=== PATIENT | female | born 1970 | race Caucasian/White ===

== ENCOUNTER 2017-04-11 10:44 | Emergency (ER) | payer SELFPAY ==
[~2017-04-11] VITALS: Ht 157.5 cm; Wt 58.0 kg
[2017-04-11 10:46] VITALS: BP 143/86; PULSE 97; RESP 20; TEMP 98.7; O2SAT 98
--- NOTE | 2017-04-11 11:01 | PD ---
HPI Chief Complaint: Pcas Problem/Complaint Time Seen by Provider: 11:01 Travel History International Travel<30 days: No Contact w/Intl Traveler<30days: No Traveled to known affect area: No History of Present Illness HPI 46-year-old female came to the emergency room with history of 2 weeks of vaginal bleeding. Patient says it has been happy where she is passing blood clots and has used a box of tampons already. She has been nauseous and vomiting alternatives days. Her mother is here who is aggressively providing history and giving her concerns as well. Patient does not seem to be in any significant distress. Vital signs are stable. 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 Patient vehemently denied any chance of being . She has a PRODUCT DEVELOPMENT TECHNICIAN but does not have insurance and hence came here. She has been little tired lately. She has not seen her PRODUCT DEVELOPMENT TECHNICIAN or taken any [id number]-slekdyn medications. Patient is not a smoker. [facility] Past Medical History Narrative Medical List of her past medical, surgical, social and family history is reviewed from the nursing note. Social History Tobacco Use: Yes Allergies-Medications (Allergen,Severity, Reaction): Coded Allergies: No Known Allergies (Unverified , 04/11/17) Comments No known drug allergies. Reported Meds & Prescriptions Reported Meds & Active Scripts Active Zofran Odt (Ondansetron Odt) 4 Mg Tab 4 Mg SL Q6HR PRN Ibuprofen 600 Mg Tab 600 Mg PO Q6H PRN Ferrous Sulfate 325 Mg (65 Mg Iron) Tablet 325 Mg PO BIDPC Ortho Tri-Cyclen (Norgestimate-Ethinyl Estradiol) 0.18/0.215/0.25 mg-35 Mcg Tab 1 Tab PO DAILY Narrative Medication List of her home medications reviewed from the nursing note. Review of Systems Except as stated in HPI: all other systems reviewed are Neg Physical Exam Narrative GENERAL: Awake, alert, no obvious distress SKIN: Focused skin assessment warm/dry. HEAD: Atraumatic. Normocephalic. EYES: Pupils equal and round. No scleral icterus. No injection or drainage. ENT: No nasal bleeding or discharge. Mucous membranes pink and moist. NECK: Trachea midline. No JVD. CARDIOVASCULAR: Regular rate and rhythm. No murmur appreciated. RESPIRATORY: No accessory muscle use. Clear to auscultation. Breath sounds equal bilaterally. GASTROINTESTINAL: Abdomen soft, non-tender, nondistended. Hepatic and splenic margins not palpable. MUSCULOSKELETAL: No obvious deformities. No clubbing. No cyanosis. No edema. NEUROLOGICAL: Awake and alert. No obvious cranial nerve deficits. Motor grossly within normal limits. Normal speech. PSYCHIATRIC: Appropriate mood and affect; insight and judgment normal. Data Data Last Documented VS Vital Signs Date Time Temp Pulse Resp B/P (MAP) Pulse Ox O2 Delivery O2 Flow Rate FiO2 04/11/17 13:05 75 99 04/11/17 10:46 98.7 20 Room Air Orders Orders Basic Metabolic Panel (Bmp) (04/11/17 11:14) Complete Blood Count With Diff (04/11/17 11:14) Ecg Monitoring (04/11/17 11:14) Iv Access Insert/Monitor (04/11/17 11:14) Oximetry (04/11/17 11:14) Sodium Chloride 0.9% Flush (Ns Flush) (04/11/17 11:15) Potassium Chloride (Kcl) (04/11/17 12:30) Labs Laboratory Tests Test 04/11/17 11:30 White Blood Count 4.4 TH/MM3 Red Blood Count 2.58 MIL/MM3 Hemoglobin 9.1 GM/DL Hematocrit 26.7 % Mean Corpuscular Volume 103.5 FL Mean Corpuscular Hemoglobin 35.1 PG Mean Corpuscular Hemoglobin Concent 33.9 % Red Cell Distribution Width 13.7 % Platelet Count 161 TH/MM3 Mean Platelet Volume 7.7 FL Neutrophils (%) (Auto) 55.0 % Lymphocytes (%) (Auto) 32.6 % Monocytes (%) (Auto) 7.7 % Eosinophils (%) (Auto) 3.5 % Basophils (%) (Auto) 1.2 % Neutrophils # (Auto) 2.4 TH/MM3 Lymphocytes # (Auto) 1.4 TH/MM3 Monocytes # (Auto) 0.3 TH/MM3 Eosinophils # (Auto) 0.2 TH/MM3 Basophils # (Auto) 0.1 TH/MM3 CBC Comment DIFF FINAL Differential Comment Blood Urea Nitrogen 12 MG/DL Creatinine 0.70 MG/DL Random Glucose 91 MG/DL Calcium Level 8.0 MG/DL Sodium Level 140 MEQ/L Potassium Level 3.3 MEQ/L Chloride Level 106 MEQ/L Carbon Dioxide Level 27.7 MEQ/L Anion Gap 6 MEQ/L Estimat Glomerular Filtration Rate 89 ML/MIN MDM Medical Decision Making Medical Screen Exam Complete: Yes Emergency Medical Condition: Yes Medical Record Reviewed: Yes Differential Diagnosis Dysfunctional uterine bleeding. Uterine fibroid Narrative Course 12:30 PM blood test shows slight anemia and hyperkalemia. I have given her by mouth potassium to replace the hypokalemia. Patient will be discharged home on prescriptions including oral contraceptive. I have asked her to follow up with her PRODUCT DEVELOPMENT TECHNICIAN. Procedures EKG Prior to Arrival: No Diagnosis Primary Impression: Dysfunctional uterine bleeding Additional Impression: Anemia Qualified Codes: D50.0 - Iron deficiency anemia secondary to blood loss ( chronic) Additional Instructions: Take the medication as per the prescription direction. Please return to the ER if the condition worsens or any other new concerns. You should not be pulling, pushing heavy objects or lifting them since it will make the bleeding worse. Drink lots of fluid. Follow-up with your PRODUCT DEVELOPMENT TECHNICIAN as soon as possible. Do not smoke while taking the hormonal pills since it will increase the risk for DVT. Med/Other Pt SpecificInfo: Prescription(s) given Scripts Ondansetron Odt (Zofran Odt) 4 Mg Tab 4 MG SL Q6HR Y for Nausea/Vomiting, #15 TAB 0 Refills Prov: Jaycob Boo MD 04/11/17 Ibuprofen (Ibuprofen) 600 Mg Tab 600 MG PO Q6H Y for Pain/Inflammation, #40 TAB 0 Refills Prov: Jaycob Boo MD 04/11/17 Ferrous Sulfate (Ferrous Sulfate) 325 Mg (65 Mg Iron) Tablet 325 MG PO BIDPC for Nutritional Supplement, #60 TAB 0 Refills Prov: Jaycob Boo MD 04/11/17 Norgestimate-Ethinyl Estradiol (Ortho Tri-Cyclen) 0.18/0.215/0.25 mg-35 Mcg Tab 1 TAB PO DAILY for Control, #1 PACK 0 Refills Prov: Jaycob Boo MD 04/11/17 Disposition: 01 DISCHARGE HOME Condition: Stable Jaycob Boo MD Apr 11, 2017 11:01
[2017-04-11] MEDS ORDERED: SODIUM CHLORIDE 0.9% FLUSH 10 ML FLUSH IVF PRN (11:15)
[2017-04-11 11:35] LABS: AUTOMATED NEUTROPHIL # 2.4 TH/MM3 (1.8-7.7); BASOPHIL # 0.1 TH/MM3 (0-0.2); BASOPHIL % 1.2 % (0.0-2.0); EOSINOPHIL # 0.2 TH/MM3 (0-0.4); EOSINOPHIL % 3.5 % (0.0-4.0); HEMATOCRIT 26.7 % (35.0-46.0); HEMO FLAGS DIFF FINAL; LYMPH % 32.6 % (9.0-44.0); LYMPHOCYTE # 1.4 TH/MM3 (1.0-4.8); MEAN CELL VOLUME 103.5 FL (80.0-100.0); MEAN CORPUSCULAR HEMOGLOBIN 35.1 PG (27.0-34.0); MEAN CORPUSCULAR HGB CONC 33.9 % (32.0-36.0); MONO % 7.7 % (0.0-8.0); PLATELET COUNT 161 TH/MM3 (150-450); RED BLOOD COUNT 2.58 MIL/MM3 (4.00-5.30); RED CELL DISTRIBUTION WIDTH 13.7 % (11.6-17.2); WHITE BLOOD COUNT 4.4 TH/MM3 (4.0-11.0)
[2017-04-11 11:49] LABS: BICARBONATE 27.7 MEQ/L (21.0-32.0); POTASSIUM 3.3 MEQ/L (3.5-5.1)
[2017-04-11] MEDS ORDERED: IBUP-232 PO (12:24)
[2017-04-11] MEDS ORDERED: ORTHTAB4 PO (12:24)
[2017-04-11] MEDS ORDERED: FERR325T8 PO (12:24)
[2017-04-11] MEDS ORDERED: ZOFR4TAB3 SL (12:26)
[2017-04-11] MEDS ORDERED: POTASSIUM CHLORIDE 20 MEQ CONTROLLED RELEASE TAB PO ONE (12:30)
== END 2017-04-11 13:17 | disposition home or self-care (01) ==
LOC: NEPD 10:44
DX: N93.8 Other specified abnormal uterine and vaginal bleeding (principal); D50.0 Iron deficiency anemia secondary to blood loss (chronic); E87.6 Hypokalemia; R11.2 Nausea with vomiting, unspecified
CPT/HCPCS: 80048; 85025; 99284